=== PATIENT | male | born 1945 | race Caucasian/White ===

== ENCOUNTER 2016-12-27 08:02 | Emergency (ER) | payer MEDICARE, OTHER ==
[~2016-12-27] VITALS: Ht 172.7 cm; Wt 74.5 kg
[2016-12-27] MEDS ORDERED: SODIUM CHLORIDE 0.9% 1,000 ML IV ONE (08:32)
[2016-12-27] MEDS ORDERED: ASPIRIN 81 MG TABLET CHEW ONE (08:48)
[2016-12-27] MEDS ORDERED: DILTIAZEM 5 MG/ML, 5ML ONE (08:48)
[2016-12-27] MEDS ORDERED: SODIUM CHLORIDE FLUSH 10ML SYR IVF ONE (09:00)
[2016-12-27] MEDS ORDERED: ASPIRIN 81 MG TABLET CHEW PO ONE (09:00)
[2016-12-27] MEDS ORDERED: DILTIAZEM 5 MG/ML, 5ML IV ONE (09:00)
[2016-12-27 09:10] LABS: ASPARTATE AMINO TRANSFERASE 24 U/L (15-37); BLOOD UREA NITROGEN 13 mg/dL (7-18)
[2016-12-27 09:14] LABS: IS PT STATUS REG ER OR PRE ER? YES
[2016-12-27] MEDS ORDERED: ROSU20TA PO (10:30)
[2016-12-27 14:15] VITALS: BP 110/76
== END 2016-12-27 14:21 | disposition home or self-care (01) ==
LOC: ED 13:34
DX: I48.0 Paroxysmal atrial fibrillation (principal)
CPT/HCPCS: 36415; 71010; 80053; 83880; 84443; 84484; 85025; 85379; 85610; 85730; 93005; 93306; 96361; 96374; 99285; J7030